=== PATIENT | female | born 1995 | race Caucasian/White ===

== ENCOUNTER 2018-01-23 23:17 | Emergency (ER) | payer OTHER ==
[~2018-01-23] VITALS: Ht 165.1 cm; Wt 95.2 kg
[~2018-01-23 23:17] MED LIST: Bactrim Ds Tab1 EACH PO; Naprosyn500 MG PO
[2018-01-24] LABS: BASOPHILS ABSOLUTE AUTO 0.03 K/mm3 (0.00-0.23); BASOPHILS PERCENT AUTO 0 % (0-2); EOSINOPHILS ABSOLUTE AUTO 0.03 K/mm3 (0.00-0.68); EOSINOPHILS PERCENT AUTO 0 % (0-6); Hematocrit 38.5 % (33.0-51.0); Hemoglobin 11.9 g/dL (11.5-16.0); IMMATURE GRAN ABSOLUTE AUTO 0.02 K/mm3 (0.00-0.10); IMMATURE GRAN PERCENT AUTO 0 % (0-1); LYMPHOCYTES ABSOLUTE AUTO 2.37 K/mm3 (0.84-5.20); LYMPHOCYTES PERCENT AUTO 27 % (21-46); MONOCYTES ABSOLUTE AUTO 0.51 K/mm3 (0.16-1.47); MONOCYTES PERCENT AUTO 6 % (4-13); Mean Corpuscular HGB 24.9 pg (26.0-34.0); Mean Corpuscular HGB Conc 30.9 g/dL (31.5-36.5); Mean Corpuscular Volume 81 fL (80-100); Mean Platelet Volume 11.6 fL (9.1-12.4); NEUTROPHILS PERCENT AUTO 66 % (41-73); Platelet Count 227 K/mm3 (150-400); RDW Coefficient Variation 15.5 % (11.7-14.2); RDW Standard Deviation 45.5 fL (35.1-46.3); Red Blood Cell Count 4.78 M/mm3 (3.80-5.20); White Blood Cell Count 8.66 K/mm3 (4.00-11.30)
[2018-01-24 00:19] LABS: Alanine Aminotransfer (ALT/SGP 44 U/L (12-78); Albumin, Blood 3.4 g/dL (3.4-5.0); Albumin/Globulin Ratio 0.7 (0.8-1.8); Alk Phos 58 U/L (50-136); Anion Gap 10 mmol/L (6-16); Aspartate Aminotrans (AST/SGOT 15 U/L (12-37); Bilirubin, Total 0.2 mg/dL (0.1-1.0); Blood Urea Nitrogen 8 mg/dL (8-24); Bun/Creatinine Ratio 12.8 (12.0-20.0); CO2, Blood 25 mmol/L (21-32); Calcium, Blood 8.9 mg/dL (8.5-10.1); Chloride, Blood 103 mmol/L (98-108); Creatinine, Blood 0.63 mg/dL (0.40-1.00); Globulin, Blood 4.8 g/dL (2.2-4.0); Glomerular Filtration Rate >60 (60-); Glucose, Blood 116 mg/dL (70-99); Potassium, Blood 3.4 mmol/L (3.5-5.5); Sodium, Blood 138 mmol/L (136-145); Total Protein, Blood 8.2 g/dL (6.4-8.2)
[2018-01-24] MEDS ORDERED: CEPH500 PO (01:44)
[2018-01-24] MEDS ORDERED: Bactrim Ds Tab1 EACH PO (01:44)
== END 2018-01-24 02:07 | disposition home or self-care (01) ==
LOC: ER 23:17
PROVIDERS: Physician Assistant
DX: L03.113 Cellulitis of right upper limb (principal); Z91.030 Bee allergy status
CPT/HCPCS: 36415; 80053; 83605; 85025; 87040; 96360; 99283; J7030

== ENCOUNTER 2018-12-07 10:14 | Emergency (ER) | payer OTHER ==
[~2018-12-07] VITALS: Ht 165.1 cm; Wt 99.8 kg
[~2018-12-07 10:14] MED LIST changes: +CEPH500 PO; +CYCL10 PO; +IBUP800 PO; +Ultram50 MG PO; +Zofran Odt4 MG PO
--- NOTE | 2018-12-07 10:50 | NUR ---
PT STATED SHE NEEDED TO USE RESTROOM. DISCUSSED WITH PRIMARY RN WHO STATES PT HAS NOT BEEN CLEARED FOR AMBULATION DUE TO LEG PAIN. STATED TO PT THAT SHE EITHER HAD TO USE BSC NOT WEIGHT BEARING OR BEDPAN. PT ARGUED THAT SHE COULD TOLERATED WEIGHT BEARING. REPEATED OPTIONS AGAIN. PT STATED SHE WOULD HOLD IT AT THIS TIME. PRIMARY RN AWARE
[2018-12-07] MEDS ORDERED: IBUP600 PO (11:53)
== END 2018-12-07 12:22 | disposition home or self-care (01) ==
LOC: ER 10:14
DX: S86.911A Strain of unspecified muscle(s) and tendon(s) at lower leg level, right leg, initial encounter (principal); S00.83XA Contusion of other part of head, initial encounter; V59.40XA Driver of pick-up truck or van injured in collision with unspecified motor vehicles in traffic accident, initial encounter; F41.9 Anxiety disorder, unspecified; Z91.030 Bee allergy status
CPT/HCPCS: 70450; 71046; 73552; 73590; 84703; 96374; 99284-25; J1885

== ENCOUNTER 2018-12-27 19:31 | Emergency (ER) | payer OTHER ==
[~2018-12-27] VITALS: Ht 165.1 cm; Wt 101.2 kg
[~2018-12-27 19:31] MED LIST changes: +IBUP600 PO
[2018-12-27] MEDS ORDERED: ERYT1OIN BOTHEYES (19:53)
== END 2018-12-27 20:15 | disposition home or self-care (01) ==
LOC: ER 19:31
DX: H10.9 Unspecified conjunctivitis (principal); F41.9 Anxiety disorder, unspecified; Z91.030 Bee allergy status; Z79.899 Other long term (current) drug therapy
CPT/HCPCS: 99282

== ENCOUNTER 2019-02-14 20:28 | Emergency (ER) | payer OTHER ==
[~2019-02-14] VITALS: Ht 167.6 cm; Wt 101.2 kg
[~2019-02-14 20:28] MED LIST changes: +ERYT1OIN BOTHEYES
[2019-02-14 21:42] LABS: Anion Gap 7 mmol/L (6-16); Blood Urea Nitrogen 11 mg/dL (8-24); Bun/Creatinine Ratio 17.4 (12.0-20.0); CO2, Blood 26 mmol/L (21-32); Calcium, Blood 9.3 mg/dL (8.5-10.1); Chloride, Blood 107 mmol/L (98-108); Creatinine, Blood 0.63 mg/dL (0.40-1.00); Glomerular Filtration Rate >60 (60-); Glucose, Blood 88 mg/dL (70-99); Potassium, Blood 3.9 mmol/L (3.5-5.5); Sodium, Blood 140 mmol/L (136-145)
[2019-02-14] MEDS ORDERED: IBUP400 PO (22:00)
[2019-02-14 22:04] LABS: Influenza A Negative (NEGATIVE); Influenza B Negative (NEGATIVE)
== END 2019-02-14 22:19 | disposition home or self-care (01) ==
LOC: ER 20:28
PROVIDERS: Emergency Medicine
DX: O99.511 Diseases of the respiratory system complicating pregnancy, first trimester (principal); J02.9 Acute pharyngitis, unspecified; O99.341 Other mental disorders complicating pregnancy, first trimester; F41.9 Anxiety disorder, unspecified; Z87.440 Personal history of urinary (tract) infections; Z91.030 Bee allergy status
CPT/HCPCS: 36415; 80048; 84702; 87804; 96361; 96374; 99284-25; J1885; J7120

== ENCOUNTER 2019-09-03 19:42 | Emergency (ER) | payer OTHER ==
[~2019-09-03] VITALS: Ht 167.6 cm; Wt 102.1 kg
[~2019-09-03 19:42] MED LIST changes: +IBUP400 PO
== END 2019-09-03 21:16 | disposition home or self-care (01) ==
LOC: ER 19:42
DX: S61.511A Laceration without foreign body of right wrist, initial encounter (principal); Z87.440 Personal history of urinary (tract) infections; Z91.030 Bee allergy status; W26.8XXA Contact with other sharp object(s), not elsewhere classified, initial encounter
CPT/HCPCS: 12001; 99282-25

== ENCOUNTER 2019-12-13 03:19 | Emergency (ER) | payer OTHER ==
[~2019-12-13] VITALS: Ht 167.6 cm; Wt 104.3 kg
[2019-12-13] MEDS ORDERED: Bactrim Ds Tab1 EACH PO (08:36)
== END 2019-12-13 09:14 | disposition home or self-care (01) ==
LOC: ER 03:19
DX: L02.415 Cutaneous abscess of right lower limb (principal); L03.115 Cellulitis of right lower limb; Z91.030 Bee allergy status
CPT/HCPCS: 10060; 81025; 99283-25; A9270-GY

== ENCOUNTER 2021-05-03 13:33 | Emergency (ER) | payer OTHER ==
[~2021-05-03] VITALS: Ht 165.1 cm; Wt 112.5 kg
[2021-05-03 15:10] LABS: SARS-Cov-2 (COVID-19) PCR, MMC NEGATIVE (NEGATIVE)
== END 2021-05-03 15:41 | disposition home or self-care (01) ==
LOC: ER 13:33
PROVIDERS: Physician Assistant
DX: B34.9 Viral infection, unspecified (principal); Z20.822 Contact with and (suspected) exposure to COVID-19; Z91.030 Bee allergy status
CPT/HCPCS: 99284; U0004

== ENCOUNTER 2021-10-03 20:42 | Emergency (ER) | payer OTHER ==
[~2021-10-03] VITALS: Ht 165.1 cm; Wt 108.9 kg
[2021-10-03] MEDS ORDERED: Robaxin750 MG PO (22:34)
[2021-10-03] MEDS ORDERED: Acetaminophen500 MG PO (22:34)
[2021-10-03] MEDS ORDERED: IBUP600 PO (22:34)
[2021-10-03] MEDS ORDERED: LIDO700A20 TOP (22:34)
== END 2021-10-03 22:43 | disposition home or self-care (01) ==
LOC: ER 20:42
DX: M54.50 Low back pain, unspecified (principal); Z91.030 Bee allergy status
CPT/HCPCS: 81025; 99283; A9270

== ENCOUNTER 2021-12-17 16:29 | Emergency (ER) | payer OTHER ==
[~2021-12-17] VITALS: Ht 165.1 cm; Wt 109.8 kg
[~2021-12-17 16:29] MED LIST changes: +Acetaminophen500 MG PO; +LIDO700A20 TOP; +Robaxin750 MG PO
[2021-12-17] MEDS ORDERED: IBU800 MG PO (16:41)
[2021-12-17] MEDS ORDERED: Amoxicillin500 MG PO (16:41)
== END 2021-12-17 16:55 | disposition home or self-care (01) ==
LOC: ER 16:29
DX: K02.9 Dental caries, unspecified (principal); Z91.030 Bee allergy status; Z79.899 Other long term (current) drug therapy
CPT/HCPCS: 99282; A9270

== ENCOUNTER 2021-12-28 01:14 | Emergency (ER) | payer OTHER ==
[~2021-12-28] VITALS: Ht 165.1 cm; Wt 108.9 kg
[~2021-12-28 01:14] MED LIST changes: +Amoxicillin500 MG PO; +IBU800 MG PO
[2021-12-28] MEDS ORDERED: BACITO TOP (01:46)
[2021-12-28] MEDS ORDERED: IBU600 MG PO (01:46)
== END 2021-12-28 01:59 | disposition home or self-care (01) ==
LOC: ER 01:14
DX: T23.262A Burn of second degree of back of left hand, initial encounter (principal); Z91.030 Bee allergy status; T31.0 Burns involving less than 10% of body surface; X19.XXXA Contact with other heat and hot substances, initial encounter
CPT/HCPCS: 99283; A9270